=== PATIENT | male | born 1995 | race Caucasian/White ===

== ENCOUNTER 2017-09-01 03:15 | Emergency (ER) | payer SELFPAY ==
[~2017-09-01] VITALS: Ht 167.6 cm; Wt 83.0 kg
[2017-09-01 03:15] VITALS: BP 105/83
[~2017-09-01 03:15] MED LIST: MIRT15OD PO
--- NOTE | 2017-09-01 03:23 | NUR ---
Patient discharged with v/s stable. Written and verbal after care instructions given and explained. Patient verbalized understanding. Police with in custody. All questions addressed prior to discharge. Advised to follow up with PMD.
== END 2017-09-01 03:23 ==
LOC: MED 03:15
DX: Z02.89 Encounter for other administrative examinations (principal); Z00.00 Encounter for general adult medical examination without abnormal findings; Z79.899 Other long term (current) drug therapy
CPT/HCPCS: 99283